=== PATIENT | male | born 1950 | race Caucasian/White ===

== ENCOUNTER 2019-05-13 23:22 | Emergency (ER) | payer MEDICARE, BC ==
[~2019-05-13] VITALS: Ht 167.6 cm; Wt 68.0 kg
[2019-05-14] MEDS ORDERED: LISINOPRIL10 MG PO (00:06)
[2019-05-14] MEDS ORDERED: ASPIR-LOW81 MG PO (00:07)
[2019-05-14] MEDS ORDERED: CRESTOR10 MG PO (00:07)
[2019-05-14] MEDS ORDERED: OMEPRAZOLE20 MG PO (00:07)
[2019-05-14] MEDS ORDERED: METAMUCIL660 GM PO (00:08)
[2019-05-14] MEDS ORDERED: VENTOLIN HFA18 GM INH (01:49)
[2019-05-14] MEDS ORDERED: SIMVASTATIN10 MG PO (01:49)
[2019-05-14] MEDS ORDERED: VITAMIN D PO (01:50)
[2019-05-14] MEDS ORDERED: CHANTIX1 MG PO (01:51)
[2019-05-14] MEDS ORDERED: ZOFRAN4 MG PO (01:54)
[2019-05-14] MEDS ORDERED: NORCO 5-325 TA1 EACH PO (01:54)
== END 2019-05-14 02:20 | disposition home or self-care (01) ==
LOC: ED 23:22
PROC: 0T9B70Z Drainage of Bladder with Drainage Device, Via Natural or Artificial Opening (ICD-10-PCS; principal; 2019-05-13)
DX: N20.2 Calculus of kidney with calculus of ureter (principal); Z87.442 Personal history of urinary calculi
CPT/HCPCS: 51701; 74177; 80053; 81001; 83690; 85025; 99284-25; J1170; J1885; J2405; J7030; Q9967